=== PATIENT | female | born 1975 | race Hispanic/Latino ===

== ENCOUNTER 2020-12-29 12:19 | Emergency (ER) | payer MEDICAID, OTHER ==
[~2020-12-29 12:19] MED LIST: IBUP-2071 PO
[2020-12-29] MEDS ORDERED: HYDROCODONE/ACETAMINOPHEN 5/325 MG TAB ONE (13:40)
[2020-12-29] MEDS ORDERED: KETOROLAC 30MG VIAL (30MG/ML) ONE (13:40)
== END 2020-12-29 17:07 | disposition home or self-care (01) ==
LOC: EDH 12:19
DX: S93.402A Sprain of unspecified ligament of left ankle, initial encounter (principal); S30.1XXA Contusion of abdominal wall, initial encounter; R51.9 Headache, unspecified; M54.2 Cervicalgia; Z98.890 Other specified postprocedural states; W10.9XXA Fall (on) (from) unspecified stairs and steps, initial encounter; Y93.89 Activity, other specified; Y92.89 Other specified places as the place of occurrence of the external cause; Y99.8 Other external cause status
CPT/HCPCS: 70450; 71250; 72125; 73521; 73610; 74176; 81025; 96372; 99285; J1885